=== PATIENT | female | born 1965 ===

== ENCOUNTER 2018-08-01 17:32 | Inpatient (IN) ==
[2018-08-01] MEDS ORDERED: Ondansetron 4 MG/2 ML VIAL IVP PRN (20:17)
[2018-08-01] MEDS ORDERED: Ondansetron 4 MG/2 ML VIAL ONE (20:20)
[2018-08-01] MEDS ORDERED: Ringers Solution, Lactated 1,000 ML IVC SCH (21:00)
[2018-08-01] MEDS ORDERED: *HR* Dextrose 50 % in Water (Syg) 50 ML SYRINGE IVP PRN (21:24)
[2018-08-01] MEDS ORDERED: Dextrose Gel 15 GM/37.5 ML TUBE PO PRN ×2 (21:24)
[2018-08-01 21:28] LABS: Prothrombin Time 11.7 Seconds (9.4-12.1)
[2018-08-01 21:31] LABS: Activated Partial Thrombo Time 22.6 Seconds (26.0-36.0)
--- NOTE | 2018-08-01 21:40 | Internal Med History&Physical ---
Date of Encounter: 08/01/18 Time of Encounter: 21:39 Internal Medicine - H&P: HPI Chief complaint: fatigue Admitted From: Home Plans for Post Hospital Care: Home History of present illness: June Sol is a 53-year-old obese woman former smoker with hypertension, diabetes, coronary artery disease status post 2 stents on dual antiplatelet therapy, cerebrovascular disease, anxiety disorder and depression. She underwent laparoscopic cholecystectomy for cholelithiasis and chronic cholecystitis on 07/16/18. On 07/26/18 she says she started developing dark stool with every bowel deposition. This has occurred daily since then and witnessed by family members. She says she went for follow-up visit in the surgery clinic where she expressed her concern to the nurse practitioner was offered no further evaluation. She has progressively become more weak, asthenic and fatigued with minimal exertion and today the role of numbness in her lower extremities which give her concern that she may be having another stroke. She went to [facility] where she was found to have a hemoglobin of 4.8 and positive stool for occult blood. On review of old records, it is noted that her hemoglobin on 07/17/18 was 10.8. She was given 2 units of blood transfusion and is transferred here for further care. At the time of my assessment she complains of diffuse abdominal pain that has been present since the dark stool developed. Vitals: Reviewed General: Well-developed white woman lying with notable anxiety. Skin: Warm, pale and dry. HEENT: Dry mucous membranes. + conjunctivae pallor. Neck: No lymphadenopathy. No JVD. No carotid bruits. No palpable thyroid. Chest: Normal thoracic expansion. Normal breath sounds. Clear to auscultation. Heart: Normal S1 & S2; rhythmic. No rubs or murmurs. Abdomen: Non-distended, soft and mildly tender to palpation in the periumbilical region. No peritoneal reaction. Extremities: No clubbing, cyanosis or edema. No calf tenderness. Normal distal pulses. Neurological: Awake, alert and oriented to person, place and time. No focal deficits. Psych: Affect appropriate. Assessment/Plan 1. Symptomatic acute blood loss anemia: Secondary to GI bleed. Will repeat H/H here with a goal Hgb of 8.0 given her history of CAD. 2. GI bleed: Seemingly upper in etiology. Concern for hemorrhagic gastritis or ulcer in the setting of dual antiplatelet therapy. GI has been consulted for endoscopic evaluation. Will keep NPO for now and start pantoprazole drip overnight. Analgesics as needed. 3. Anxiety disorder: Will administer diphenhydramine or lorazepam parenterally as needed. 4. CAD: DAPT will be on hold for now given bleeding status. 5. CVA: As above. 6. Diabetes: Will place on insulin sliding scale with glucose checks. 7. HTN: BP currently within normal limits. Past Med Surg Social Fam HX - Past Medical History Medical history: CVA, diabetes, myocardial infarction Additional medical history: 50% blind, neuropathy Psychiatric history: anxiety, depression, PTSD - Past Surgical History Surgical History: , cholecystectomy Additional surgical history: 2 stents - Social History Smoking Status: Former smoker Smokeless Tobacco Status: No Alcohol use: none Drug use: none Internal Medicine - H&P: Meds Amlodipine Besylate 10 mg PO DAILY 07/15/18 [History] Aspirin [Lo-Dose Aspirin EC] 81 mg PO DAILY 07/15/18 [History] Atorvastatin [Lipitor] 40 mg PO DAILY 07/15/18 [History] Calcitriol [Rocaltrol] 0.25 mg PO DAILY 07/15/18 [History] Calcium Carbonate/Vitamin D3 [Calcium 600-Vit D3 200 Tablet] 1 each PO BID 07/15/18 [History] Clopidogrel [Plavix] 75 mg PO DAILY 07/15/18 [History] Lisinopril [Zestril] 5 mg PO DAILY 07/15/18 [History] Loratadine [Allergy Relief] 10 mg PO DAILY 07/15/18 [History] Metoprolol Succinate [Toprol Xl] 50 mg PO DAILY 07/15/18 [History] Ondansetron HCl [Zofran] 4 mg PO Q8H PRN 07/15/18 [History] Potassium Chloride [Klor-Con 10] 10 meq PO DAILY 07/15/18 [History] metFORMIN [Glucophage] 500 mg PO DAILY 07/15/18 [History] Docusate Sodium [Colace] 100 mg PO BID PRN #30 capsule 07/16/18 [Rx] Ondansetron ODT [Zofran ODT] 4 mg SL Q4HR PRN #15 tab.rapdis 07/16/18 [Rx] Atorvastatin [Lipitor] 40 mg PO HS tablet 07/17/18 [Rx] Allergy/AdvReac Type Severity Reaction Status Date / Time acetaminophen [From Percocet] AdvReac Itching Verified 08/01/18 20:33 oxycodone [From Percocet] AdvReac Itching Verified 08/01/18 20:33 All Systems PM: A 10-system review of systems was performed and is negative for pertinent findings except as documented above in the HPI. Family history reviewed and found non-contributory. - Constitutional Vitals: Temp Pulse Resp BP Pulse Ox 98.3 F 67 18 133/81 100 08/01/18 19:50 08/01/18 19:50 08/01/18 19:50 08/01/18 19:50 08/01/18 19:50 Exam: . - Time Spent With Patient Total time spent is greater than 50% in coordination of care (as documented) at patient's floor/unit and/or counseling patient: Greater than 35 minutes
[2018-08-01 21:41] LABS: Albumin 3.2 g/dL (3.5-5.7); Albumin/Globulin Ratio 1.2 (1.1-2.2); Bilirubin,Direct 0.1 mg/dL (0.0-0.2); Bilirubin,Indirect 0.5 mg/dL (0.0-1.2); Bilirubin,Total 0.6 mg/dL (0.3-1.0); Calcium 8.5 mg/dL (8.6-10.3); Globulin 2.6 g/dL (2.4-3.5); Potassium 4.2 mEq/L (3.5-5.1); Total Protein 5.8 g/dL (6.4-8.9)
[2018-08-01] MEDS: Pantoprazole 40 MG in 0.9 % Sodium Chloride Mini Bag 100 ML IVC SCH (21:59)
[2018-08-01 22:03] LABS: Basophils # 0.1 K/mcL (0.0-0.2); Basophils % 0.5 %; Eosinophils # 0.4 K/mcL (0.0-0.6); Eosinophils % 4.1 %; Hematocrit 22.7 % (35.3-44.9); Hemoglobin 7.3 g/dL (11.5-15.4); Immature Granulocytes % 1.4 % (0-4); Lymphocytes # 4.3 K/mcL (0.6-4.6); Lymphocytes % 42.2 %; Mean Corpuscular HGB Conc 32.2 g/dL (31.6-35.5); Mean Corpuscular Hemoglobin 30.3 pg (28.0-33.3); Mean Corpuscular Volume 94.2 fL (83.0-100.0); Mean Platelet Volume 9.5 fL (9.4-12.4); Monocytes # 0.7 K/mcL (0.0-1.3); Monocytes % 6.7 %; Neutrophils # 4.5 K/mcL (1.6-8.9); Nucleated Red Blood Cells 0.9 /100 WBC (0); Platelet Count 329 K/mcL (140-400); Red Blood Count 2.41 M/mcL (3.82-4.97); Red Cell Distribution Width 16.6 % (11.5-14.5); Segmented Neutrophils % 45.1 %
[2018-08-01] MEDS ORDERED: 0.9 % Sodium Chloride 500 ML ONE (23:09)
[2018-08-02] MEDS: Insulin LISPRO 300 UNITS/3 ML VIAL SQ SCH ×4 (00:35→17:14)
[2018-08-02] MEDS ORDERED: OXYCODONE Oral CONC 10 MG/0.5 ML ORAL.SYG SL ONE (02:11)
[2018-08-02] MEDS: Pantoprazole 40 MG in 0.9 % Sodium Chloride Mini Bag 100 ML IVC SCH ×3 (02:32→12:55)
[2018-08-02 07:45] LABS: Basophils # 0.1 K/mcL (0.0-0.2); Basophils % 0.6 %; Eosinophils # 0.6 K/mcL (0.0-0.6); Eosinophils % 7.3 %; Hematocrit 23.8 % (35.3-44.9); Hemoglobin 7.7 g/dL (11.5-15.4); Immature Granulocytes % 1.4 % (0-4); Lymphocytes # 3.3 K/mcL (0.6-4.6); Lymphocytes % 38.4 %; Mean Corpuscular HGB Conc 32.4 g/dL (31.6-35.5); Mean Corpuscular Hemoglobin 29.5 pg (28.0-33.3); Mean Corpuscular Volume 91.2 fL (83.0-100.0); Mean Platelet Volume 9.4 fL (9.4-12.4); Monocytes # 0.6 K/mcL (0.0-1.3); Monocytes % 6.6 %; Nucleated Red Blood Cells 0.5 /100 WBC (0); Platelet Count 288 K/mcL (140-400); Red Blood Count 2.61 M/mcL (3.82-4.97); Red Cell Distribution Width 17.4 % (11.5-14.5); Segmented Neutrophils % 45.7 %
--- NOTE | 2018-08-02 08:45 | Internal Medicine Consult Note ---
Date of Encounter: 08/02/18 Time of Encounter: 08:42 - Assessment and Plan (1) Anemia Current Visit: Yes Status: Acute Assessment and plan: Given the darkness of her bowel movements, abdominal pain, will set up for upper endoscopy this morning. Risks and benefits have been discussed. Differential to include esophagitis, ulceration, even gastritis with bleeding. If this is negative, she will need bowel prep and colonoscopy. Supporting hemoglobin needed, we will continue PPI therapy. She was slightly anemic even before her gallbladder surgery, is quite possible she had trouble at that time. Certainly compounded by dual antiplatelet therapy. Qualifiers: Anemia type: unspecified type Qualified Code(s): D64.9 - Anemia, unspecified (2) CAD (coronary artery disease) Current Visit: No Status: Chronic Assessment and plan: This appears stable, upon discharge, we will certainly hold one of these medications if not both, specifically the aspirin and Plavix. Qualifiers: Qualified Code(s): I25.10 - Atherosclerotic heart disease of [place] coronary artery without angina pectoris (3) HTN (hypertension), benign Current Visit: No Status: Chronic (4) History of CVA (cerebrovascular accident) Current Visit: Yes Status: Chronic (5) Mood disorder Current Visit: No Status: Chronic Internal Medicine - CN: HPI - Data of Consult Patient: new to practice Requesting Physician: Elizabeth Ascencio - Consult Narrative Reason for consult: Melena, drop in HGB History of present illness: Ms. Sol is a 53 year old female seen at the request of the hospitalist service. She presented to [facility] with at least 5-7 days of intermittent dark stool, yesterday developed more subacute onset of just leg weakness and feeling poorly. Upon presentation to [facility], she was found to have a hemoglobin of 4.7. She was actually transferred here after receiving 2 units of blood at that facility. She now is awake and alert and feeling a good deal better. She is roughly 2 weeks out of having a cystectomy here at [facility]. And even before that time was losing moderate amount of weight and had some dyspeptic complaints with nausea intermittent reflux. She admits since surgery, she is had upper abdominal vague discomfort with episodes of nausea and emesis. She has seen no blood or coffee-ground material. She has had no prior upper or lower endoscopy, and was not told she was anemic in the past. Has not been taking any anti-inflammatories, does take dual antiplatelet therapy for heart disease Past Med Surg Social Fam HX - Past Medical History Medical history: CVA, diabetes, hypertension, myocardial infarction Additional medical history: 50% blind, neuropathy Psychiatric history: anxiety, depression, PTSD - Past Surgical History Surgical History: , cholecystectomy Additional surgical history: 2 stents - Social History Smoking Status: Former smoker Smokeless Tobacco Status: No Alcohol use: none Drug use: none - Constitutional Constitutional: anorexia, fatigue, lethargy, malaise, weakness, weight loss, no fever(s), no falls - EENT Eyes: no blurry vision, no diplopia - Cardiovascular Cardiovascular ROS IM: no chest pain, no diaphoresis, no dyspnea, no edema, no lightheadedness, no palpitations, no syncope - Respiratory Respiratory: no cough, no dyspnea, no wheezing, no chest congestion - Gastrointestinal Gastrointestinal: abdominal pain, change in bowel habits, change in stool character, dyspepsia, heartburn, melena, nausea, vomiting, no dysphagia - Genitourinary Genitourinary: no hematuria, no menorrhagia, no pelvic pain - Musculoskeletal Musculoskeletal ROS IM: no joint swelling, no neck pain - Neurological Neurological ROS: loss of vision, no confusion, no convulsions, no memory loss - Psychiatric Psychiatric: depression - Hematologic/Lymphatic Hematologic/Lymphatic: no easy bleeding, no easy bruising Internal Medicine - CN: Meds Amlodipine Besylate 10 mg PO DAILY 07/15/18 [History] Aspirin [Lo-Dose Aspirin EC] 81 mg PO DAILY 07/15/18 [History] Calcitriol [Rocaltrol] 0.25 mg PO DAILY 07/15/18 [History] Calcium Carbonate/Vitamin D3 [Calcium 600-Vit D3 200 Tablet] 1 each PO BID 07/15/18 [History] Clopidogrel [Plavix] 75 mg PO DAILY 07/15/18 [History] Lisinopril [Zestril] 5 mg PO DAILY 07/15/18 [History] Loratadine [Allergy Relief] 10 mg PO DAILY 07/15/18 [History] Metoprolol Succinate [Toprol Xl] 50 mg PO DAILY 07/15/18 [History] Ondansetron HCl [Zofran] 4 mg PO Q8H PRN 07/15/18 [History] Potassium Chloride [Klor-Con 10] 10 meq PO DAILY 07/15/18 [History] metFORMIN [Glucophage] 500 mg PO DAILY 07/15/18 [History] Docusate Sodium [Colace] 100 mg PO BID PRN #30 capsule 07/16/18 [Rx] Atorvastatin [Lipitor] 40 mg PO HS tablet 07/17/18 [Rx] Allergy/AdvReac Type Severity Reaction Status Date / Time acetaminophen [From Percocet] AdvReac Itching Verified 08/01/18 20:33 oxycodone [From Percocet] AdvReac Itching Verified 08/01/18 20:33 Internal Med - CN: Exam - Constitutional Vitals: Temp Pulse Resp BP Pulse Ox 98.1 F 65 18 122/63 98 08/02/18 07:35 08/02/18 07:35 08/02/18 07:35 08/02/18 07:35 08/02/18 07:35 General appearance IM: Present: A&O X 3, pleasant, no acute distress, answers questions appropriately Exam: Overall good historian, pleasant, maybe a bit anxious. But seems comfortable in bed. - Head Head exam: Present: atraumatic, normocephalic - Eye Eye exam: Present: conjuntiva pink, sclera anicteric - Neck Neck exam general surgery: Present: full ROM, supple, trachea midline - Respiratory Respiratory exam: Present: CTAB. Absent: respiratory distress, rhonchi, wheezes, tachypnea - Cardiovascular Cardiovascular exam IM: Present: irregular rhythm, RRR, +S1, +S2. Absent: JVD, systolic murmur, tachycardia - GI/Abdominal GI/Abdominal exam IM: Present: firm, normal bowel sounds, tenderness. Absent: guarding, rebound, rigid Additional comments: Abdomen is somewhat protuberant, appropriate bowel sounds, mildly tender in all quadrants. She admits her abdomen is always been somewhat touchy to palpation. Laparoscopic incisions healing nicely. - Rectal Rectal exam: Present: deferred Internal Medicine - CN: Reslt - Labs CBC & Chem 7: 08/02/18 07:29 08/01/18 21:06 Labs: Short CBC 08/01/18 08/02/18 Range/Units 21:35 07:29 WBC 10.1 8.6 (4.3-11.1) K/mcL Hgb 7.3 L 7.7 L (11.5-15.4) g/dL Hct 22.7 L 23.8 L (35.3-44.9) % Plt Count 329 288 (140-400) K/mcL Neutrophils # 4.5 4.0 (1.6-8.9) K/mcL BMP 08/01/18 21:06 Sodium 137 Potassium 4.2 Chloride 109 H Carbon Dioxide 20 L BUN 29 H Creatinine 1.34 H Glucose 101 Calcium 8.5 L Liver Function 08/01/18 Range/Units 21:06 Total Bilirubin 0.6 (0.3-1.0) mg/dL Direct Bilirubin 0.1 (0.0-0.2) mg/dL AST 15 (13-39) Units/L ALT 15 (7-52) Units/L Alkaline Phosphatase 78 (34-104) Units/L Albumin 3.2 L (3.5-5.7) g/dL - ABG Interpretation ABG results: PT/INR, D-dimer PT 11.7 Seconds (9.4-12.1) 08/01/18 21:06 Consult Discharge Plan - Plan Referrals: Pop Joseph DO [Primary Care Provider] -
[2018-08-02] MEDS ORDERED: Simethicone 40 MG/0.6 ML MLS IR ONE (08:54)
[2018-08-02] MEDS ORDERED: *HR* FentaNYL (PF) 100 MCG/2 ML VIAL IVP ONE (08:54)
[2018-08-02] MEDS ORDERED: *HR* Midazolam HCl 5 MG/5 ML VIAL IVP ONE ×2 (08:54→09:14)
[2018-08-02] MEDS ORDERED: Tetracaine/Benzocaine/Butamben 1 SPRAY AEROSOL MM ONE (08:54)
--- NOTE | 2018-08-02 08:55 | Pre-Sedation Evaluation ---
Pre-sedation evaluation - Pre-sedation checklist Date of procedure: 08/02/18 Procedure: EGD Recent Vitals: Last Vital Signs Temp 98.1 F 08/02/18 07:35 Pulse 65 08/02/18 07:35 Resp 18 08/02/18 07:35 BP 122/63 08/02/18 07:35 Pulse Ox 98 08/02/18 07:35 H&P (including ROS) documented in medical record: Yes Previous reaction to sedatives/anesthetics: No Dietary Status: NPO after Midnight Airway Assessment: Patient can open mouth completely, TMJ function normal Dentition: No loose teeth or bridges Possible difficult airway: No ASA Classification *see protocol: CLASS III-Severe systemic disease Plan of Care: Pt appropriate candidate for procedure/moderate/conscious sedation
[2018-08-02] MEDS ORDERED: *HR* FentaNYL (PF) 100 MCG/2 ML VIAL ONE (09:13)
--- NOTE | 2018-08-02 09:51 | Event Note ---
Date of Encounter: 08/02/18 Time of Encounter: 09:49 EGD findings: 1. Esophagus, Z line okay at 40 cm, small nodule noted, biopsy, most likely not significant. 2 Stomach, Normal 3. Duodenum, distal bulb ulceration no clot, active bleeding. CLOtest obtained, suspicious for H. pylori Recommendations We will check on H. pylori testing in the morning, continue PPI therapy, I will start iron. Hopefully if she stays stable, and 24-48 hours she may safely discharged.
--- NOTE | 2018-08-02 09:53 | Internal Med Progress Note ---
Date of Encounter: 08/02/18 Time of Encounter: 09:51 - Assessment and plan (1) Duodenal ulcer Current Visit: Yes Status: Acute Assessment and plan: Suspicious for H. pylori. We will continue PPI therapy, I have added Carafate. With GI bleeding and blood loss anemia. (2) CAD (coronary artery disease) Current Visit: No Status: Chronic Qualifiers: Qualified Code(s): I25.10 - Atherosclerotic heart disease of [place] coronary artery without angina pectoris (3) HTN (hypertension), benign Current Visit: No Status: Chronic (4) History of CVA (cerebrovascular accident) Current Visit: Yes Status: Chronic (5) Mood disorder Current Visit: No Status: Chronic - Constitutional Vitals: Temp Pulse Resp BP Pulse Ox 98.3 F 62 16 104/58 98 08/02/18 09:15 08/02/18 09:36 08/02/18 09:36 08/02/18 09:36 08/02/18 09:36 Internal Medicine: Result - Labs CBC & Chem 7: 08/02/18 07:29 08/01/18 21:06 Labs: Short CBC 08/01/18 08/02/18 Range/Units 21:35 07:29 WBC 10.1 8.6 (4.3-11.1) K/mcL Hgb 7.3 L 7.7 L (11.5-15.4) g/dL Hct 22.7 L 23.8 L (35.3-44.9) % Plt Count 329 288 (140-400) K/mcL Neutrophils # 4.5 4.0 (1.6-8.9) K/mcL BMP 08/01/18 21:06 Sodium 137 Potassium 4.2 Chloride 109 H Carbon Dioxide 20 L BUN 29 H Creatinine 1.34 H Glucose 101 Calcium 8.5 L Liver Function 08/01/18 Range/Units 21:06 Total Bilirubin 0.6 (0.3-1.0) mg/dL Direct Bilirubin 0.1 (0.0-0.2) mg/dL AST 15 (13-39) Units/L ALT 15 (7-52) Units/L Alkaline Phosphatase 78 (34-104) Units/L Albumin 3.2 L (3.5-5.7) g/dL - ABG Interpretation ABG results: PT/INR, D-dimer PT 11.7 Seconds (9.4-12.1) 08/01/18 21:06 Consult Discharge Plan - Plan Referrals: Pop Joseph DO [Primary Care Provider] -
[2018-08-02] MEDS: Sucralfate 1 GM TABLET PO SCH ×2 (10:08→15:45)
[2018-08-02] MEDS ORDERED: 0.9 % Sodium Chloride 250 ML ONE (11:14)
--- NOTE | 2018-08-02 11:52 | Internal Med Progress Note ---
Hospitalist Progress Note - Encounter Date of Encounter: 08/02/18 Time of Encounter: 11:30 - Subjective Interval History: Admitted for acute gi bleed. for endoscopy this am - Exam Vitals: Temp Pulse Resp BP Pulse Ox 98.0 F 68 16 108/67 98 08/02/18 11:23 08/02/18 11:23 08/02/18 11:23 08/02/18 11:23 08/02/18 11:23 Exam: General appearance: Present: A&O X 3, no acute distress Head exam: Present: normocephalic Respiratory exam: Present: CTAB. Absent: accessory muscle use, rales, rhonchi, wheezes Cardiovascular exam: Present: RRR, +S1, +S2. Absent: diastolic murmur, gallop, rubs, systolic murmur GI/Abdominal exam: Soft, NT, ND, +BS Extremities exam: Absent: pedal edema Neurological exam: Present: alert, oriented X3, no focal deficits. Absent: altered - Assessment and Plan (1) Acute upper GI bleed Current Visit: Yes Status: Acute Assessment and Plan: Pt came in with dark stools of about 4 days duration with hemoglobin of 4.8 She has been transfused a total of 3 units of PRBC. Hemoglobin is 7.7 She underwent endoscopy this am showing a bleeding duodenal ulcer Will continue PPI therapy. Switch to protonix 40mg IV BID. Follow up h. pylori testing. Transfuse to keep hgb above 8 due to CAD (2) Duodenal ulcer Current Visit: Yes Status: Acute Assessment and Plan: See #1. Hy pylori testing ordered Cotninue carafate and PPI (3) HTN (hypertension), benign Current Visit: No Status: Chronic Assessment and Plan: Stable. no indication for antihypertensives (4) Mood disorder Current Visit: Yes Status: Chronic Assessment and Plan: Resume home meds (5) CAD (coronary artery disease) Current Visit: No Status: Chronic Assessment and Plan: Hold aspirin and plavix (6) History of CVA (cerebrovascular accident) Current Visit: Yes Status: Chronic Assessment and Plan: Hold aspirin and plavix (7) DVT prophylaxis Current Visit: Yes Status: Acute Assessment and Plan: SCD - Time Spent with Patient Total time spent is greater than 50% in coordination of care (as documented) at patient's floor/unit and/or counseling patient: Internal Medicine: Result - Labs CBC & Chem 7: 08/02/18 07:29 08/01/18 21:06 Labs: Short CBC 08/01/18 08/02/18 Range/Units 21:35 07:29 WBC 10.1 8.6 (4.3-11.1) K/mcL Hgb 7.3 L 7.7 L (11.5-15.4) g/dL Hct 22.7 L 23.8 L (35.3-44.9) % Plt Count 329 288 (140-400) K/mcL Neutrophils # 4.5 4.0 (1.6-8.9) K/mcL BMP 08/01/18 21:06 Sodium 137 Potassium 4.2 Chloride 109 H Carbon Dioxide 20 L BUN 29 H Creatinine 1.34 H Glucose 101 Calcium 8.5 L Liver Function 08/01/18 Range/Units 21:06 Total Bilirubin 0.6 (0.3-1.0) mg/dL Direct Bilirubin 0.1 (0.0-0.2) mg/dL AST 15 (13-39) Units/L ALT 15 (7-52) Units/L Alkaline Phosphatase 78 (34-104) Units/L Albumin 3.2 L (3.5-5.7) g/dL - ABG Interpretation ABG results: PT/INR, D-dimer PT 11.7 Seconds (9.4-12.1) 08/01/18 21:06 Consult Discharge Plan - Plan Referrals: Pop Joseph DO [Primary Care Provider] - (5) CAD (coronary artery disease) Qualifiers: Qualified Code(s): I25.10 - Atherosclerotic heart disease of [place] coronary artery without angina pectoris
[2018-08-02] MEDS ORDERED: Nitroglycerin 0.4 MG TAB.SUBL SL PRN (16:03)
[2018-08-02] MEDS: Pantoprazole 40 MG VIAL IVP SCH (17:19)
[2018-08-02] MEDS ORDERED: GI Cocktail 40 ML EACH PO ONE (18:43)
[2018-08-03] MEDS: Sucralfate 1 GM TABLET PO SCH ×5 (01:07→21:35)
[2018-08-03] MEDS: Insulin LISPRO 300 UNITS/3 ML VIAL SQ SCH ×4 (01:08→17:01)
[2018-08-03] MEDS: Pantoprazole 40 MG VIAL IVP SCH (05:34)
[2018-08-03 08:17] LABS: Basophils # 0.1 K/mcL (0.0-0.2); Basophils % 0.7 %; Eosinophils # 0.8 K/mcL (0.0-0.6); Eosinophils % 10.1 %; Hematocrit 28.8 % (35.3-44.9); Hemoglobin 9.2 g/dL (11.5-15.4); Immature Granulocytes % 0.9 % (0-4); Lymphocytes % 40.1 %; Mean Corpuscular HGB Conc 31.9 g/dL (31.6-35.5); Mean Corpuscular Hemoglobin 29.5 pg (28.0-33.3); Mean Corpuscular Volume 92.3 fL (83.0-100.0); Mean Platelet Volume 9.5 fL (9.4-12.4); Monocytes # 0.5 K/mcL (0.0-1.3); Monocytes % 6.9 %; Neutrophils # 3.1 K/mcL (1.6-8.9); Nucleated Red Blood Cells 0.3 /100 WBC (0); Platelet Count 317 K/mcL (140-400); Red Blood Count 3.12 M/mcL (3.82-4.97); Red Cell Distribution Width 17.4 % (11.5-14.5); Segmented Neutrophils % 41.3 %
[2018-08-03 08:49] LABS: Calcium 8.5 mg/dL (8.6-10.3); Magnesium 1.9 mg/dL (1.6-2.6); Potassium 4.4 mEq/L (3.5-5.1)
--- NOTE | 2018-08-03 10:16 | Event Note ---
Date of Encounter: 08/03/18 Time of Encounter: 10:15 Her Lizabeth TEST is negative.. will need 8 weeks of PPI therapy, maybe 2 weeks of carafate. DC further Plavix and re-start ASA in 7 days
--- NOTE | 2018-08-03 12:53 | Internal Med Progress Note ---
Hospitalist Progress Note - Encounter Date of Encounter: 08/03/18 Time of Encounter: 12:00 - Subjective Interval History: s/p endoscopy in last 24hrs - Exam Vitals: Temp Pulse Resp BP Pulse Ox 97.7 F 65 18 148/79 99 08/03/18 11:45 08/03/18 11:45 08/03/18 11:45 08/03/18 11:45 08/03/18 11:45 Exam: General appearance: Present: A&O X 3, no acute distress Head exam: Present: normocephalic Respiratory exam: Present: CTAB. Absent: accessory muscle use, rales, rhonchi, wheezes Cardiovascular exam: Present: RRR, +S1, +S2. Absent: diastolic murmur, gallop, rubs, systolic murmur GI/Abdominal exam: Soft, NT, ND, +BS Extremities exam: Absent: pedal edema Neurological exam: Present: alert, oriented X3, no focal deficits. Absent: altered - Assessment and Plan (1) Acute upper GI bleed Current Visit: Yes Status: Acute Assessment and Plan: Pt came in with dark stools of about 4 days duration with hemoglobin of 4.8 She has been transfused a total of 3 units of PRBC. Hemoglobin is 7.7 She underwent endoscopy on 08/02 showing a duodenal ulcer Will continue PPI therapy.H. pylori testing negative Keep hemoglobin above 8. Will monitor and plan to d/c in am if hemoglobin is stable (2) Duodenal ulcer Current Visit: Yes Status: Acute Assessment and Plan: See #1. H.pylori testing negative Cotninue carafate and PPI (3) HTN (hypertension), benign Current Visit: Yes Status: Chronic Assessment and Plan: Stable. no indication for antihypertensives (4) Mood disorder Current Visit: Yes Status: Chronic Assessment and Plan: Resume home meds (5) CAD (coronary artery disease) Current Visit: Yes Status: Chronic Assessment and Plan: Hold aspirin and plavix (6) History of CVA (cerebrovascular accident) Current Visit: Yes Status: Chronic Assessment and Plan: Hold aspirin and plavix (7) DVT prophylaxis Current Visit: Yes Status: Acute Assessment and Plan: SCD - Time Spent with Patient Total time spent is greater than 50% in coordination of care (as documented) at patient's floor/unit and/or counseling patient: Internal Medicine: Result - Labs CBC & Chem 7: 08/03/18 07:07 08/03/18 07:07 Labs: Short CBC 08/03/18 Range/Units 07:07 WBC 7.5 (4.3-11.1) K/mcL Hgb 9.2 L D (11.5-15.4) g/dL Hct 28.8 L (35.3-44.9) % Plt Count 317 (140-400) K/mcL Neutrophils # 3.1 (1.6-8.9) K/mcL BMP 08/03/18 07:07 Sodium 136 Potassium 4.4 Chloride 107 Carbon Dioxide 21 L BUN 20 Creatinine 1.45 H Glucose 107 H Calcium 8.5 L Cardiac Enzymes 08/02/18 Range/Units 16:10 Troponin I < 0.03 (< 0.04) ng/mL - ABG Interpretation ABG results: PT/INR, D-dimer PT 11.7 Seconds (9.4-12.1) 08/01/18 21:06 Consult Discharge Plan - Plan Referrals: Pop Joseph DO [Primary Care Provider] - (5) CAD (coronary artery disease) Qualifiers: Qualified Code(s): I25.10 - Atherosclerotic heart disease of [place] coronary artery without angina pectoris
[2018-08-03 18:38] LABS: Hematocrit 32.4 % (35.3-44.9); Hemoglobin 10.6 g/dL (11.5-15.4)
[2018-08-03] MEDS: Loratadine 10 MG TABLET PO SCH (19:45)
[2018-08-03] MEDS ORDERED: Insulin LISPRO 300 UNITS/3 ML VIAL SQ SCH (21:00)
[2018-08-04] MEDS ORDERED: Acetaminophen 325 MG TABLET PO PRN (03:34)
[2018-08-04 04:30] LABS: Basophils % 0.4 %; Eosinophils # 0.8 K/mcL (0.0-0.6); Eosinophils % 11.1 %; Hematocrit 30.6 % (35.3-44.9); Hemoglobin 9.9 g/dL (11.5-15.4); Immature Granulocytes % 0.8 % (0-4); Lymphocytes # 3.2 K/mcL (0.6-4.6); Lymphocytes % 42.6 %; Mean Corpuscular HGB Conc 32.4 g/dL (31.6-35.5); Mean Corpuscular Hemoglobin 30.1 pg (28.0-33.3); Mean Platelet Volume 9.2 fL (9.4-12.4); Monocytes # 0.5 K/mcL (0.0-1.3); Monocytes % 6.7 %; Neutrophils # 2.9 K/mcL (1.6-8.9); Platelet Count 320 K/mcL (140-400); Red Blood Count 3.29 M/mcL (3.82-4.97); Red Cell Distribution Width 17.4 % (11.5-14.5); Segmented Neutrophils % 38.4 %
[2018-08-04 04:48] LABS: Calcium 8.8 mg/dL (8.6-10.3); Phosphorous 3.7 mg/dL (2.7-4.5); Potassium 4.1 mEq/L (3.5-5.1)
[2018-08-04] MEDS: Insulin LISPRO 300 UNITS/3 ML VIAL SQ SCH ×2 (07:25→11:52)
[2018-08-04] MEDS: Loratadine 10 MG TABLET PO SCH (07:37)
[2018-08-04] MEDS: Sucralfate 1 GM TABLET PO SCH ×3 (07:37→15:54)
[2018-08-04] MEDS ORDERED: 0.9 % Sodium Chloride 1,000 ML IVC SCH (08:15)
[2018-08-04] MEDS ORDERED: amLODIPine 5 MG TABLET PO SCH (09:00)
[2018-08-04] MEDS ORDERED: Metoprolol XL (24 HR) Succ 50 MG TAB.ER.24H PO SCH (09:00)
--- NOTE | 2018-08-04 09:25 | Discharge Summary ---
- NOTES TO OUTPATIENT PROVIDER Notes to Outpatient Provider: Stop taking plavix. Resume aspirin in 7 days. Take protonix BID for 8 weeks Date of Encounter: 08/04/18 Time of Encounter: 11:40 - Discharge Diagnosis (1) Acute upper GI bleed Priority: Primary Status: Acute Assessment and Plan: 53-year-old obese woman former smoker with hypertension, diabetes, coronary artery disease status post 2 stents on dual antiplatelet therapy, cerebrovascular disease, anxiety disorder and depression. She underwent laparoscopic cholecystectomy for cholelithiasis and chronic cholecystitis on 07/16/18. On 07/26/18 she says she started developing dark stool with every bowel deposition. This has occurred daily since then and witnessed by family members. She was assessed with symptomatic anemia with acute upper GI bleed. Pt came in with dark stools of about 4 days duration with hemoglobin of 4.8. She was started on a protonix drip and was transfused a total of 4 units of PRBC. Hemogl obin responded appropriately. She underwent endoscopy on 08/02 showing a non bleeding duodenal ulcer. She was tested for h. pylori which came back negative. Her plavix which she was on 5 years has been discontinued and she is to resume aspirin in 7 days. Hemoglobin is stable. she is being discharged on BID protonix. She had an ZAIN likely secondary to hypovolemia for which she was hydrated prior to discharge. 35 minutes was spent discharging this patient (2) Duodenal ulcer Priority: Primary Status: Acute (3) HTN (hypertension), benign Priority: Primary Status: Chronic (4) Mood disorder Priority: Primary Status: Chronic (5) CAD (coronary artery disease) Priority: Primary Status: Chronic Qualifiers: Qualified Code(s): I25.10 - Atherosclerotic heart disease of [place] coronary artery without angina pectoris (6) History of CVA (cerebrovascular accident) Priority: Primary Status: Chronic (7) DVT prophylaxis Priority: Primary Status: Acute Hospital course: Ms. Sol is a 53 year old female - Time Spent with Patient Total time spent providing and/or coordinating discharge services: - Discharge Medications Prescriptions: New Ferrous Sulfate 325 mg PO BIDWM #60 tablet Omeprazole [PriLOSEC] 40 mg PO BIDAC #60 capsule. Docusate [Colace] 100 mg PO BID #60 capsule Sucralfate [Carafate] 1 gm PO QIDAC #120 tablet Continued Amlodipine Besylate 10 mg PO DAILY Calcitriol [Rocaltrol] 0.25 mcg PO DAILY Lisinopril [Zestril] 5 mg PO DAILY Loratadine [Allergy Relief] 10 mg PO DAILY Metoprolol Succinate [Toprol Xl] 50 mg PO DAILY Potassium Chloride [Klor-Con 10] 10 meq PO DAILY Aspirin [Lo-Dose Aspirin EC] 81 mg PO DAILY metFORMIN [Glucophage] 500 mg PO DAILY Atorvastatin [Lipitor] 40 mg PO HS tablet DULoxetine [Cymbalta] 30 mg PO DAILY Discontinued Clopidogrel [Plavix] 75 mg PO DAILY Home Medications: Amlodipine Besylate 10 mg PO DAILY 07/15/18 [History] Aspirin [Lo-Dose Aspirin EC] 81 mg PO DAILY 07/15/18 [History] Calcitriol [Rocaltrol] 0.25 mcg PO DAILY 07/15/18 [History] Lisinopril [Zestril] 5 mg PO DAILY 07/15/18 [History] Loratadine [Allergy Relief] 10 mg PO DAILY 07/15/18 [History] Metoprolol Succinate [Toprol Xl] 50 mg PO DAILY 07/15/18 [History] Potassium Chloride [Klor-Con 10] 10 meq PO DAILY 07/15/18 [History] metFORMIN [Glucophage] 500 mg PO DAILY 07/15/18 [History] Atorvastatin [Lipitor] 40 mg PO HS tablet 07/17/18 [Rx] DULoxetine [Cymbalta] 30 mg PO DAILY 08/03/18 [History] Docusate [Colace] 100 mg PO BID #60 capsule 08/04/18 [Rx] Ferrous Sulfate 325 mg PO BIDWM #60 tablet 08/04/18 [Rx] Omeprazole [PriLOSEC] 40 mg PO BIDAC #60 capsule. 08/04/18 [Rx] Sucralfate [Carafate] 1 gm PO QIDAC #120 tablet 08/04/18 [Rx] Allergies/Adverse Reactions: Allergy/AdvReac Type Severity Reaction Status Date / Time acetaminophen [From Percocet] AdvReac Itching Verified 08/01/18 20:33 Doxepin AdvReac Nightmare Verified 08/03/18 15:00 oxycodone [From Percocet] AdvReac Itching Verified 08/01/18 20:33 Date of admission: 08/01/18 21:34 Primary care physician: Pop Joseph DO Consults: 08/01/18 20:52 Consult to Gastroenterology [CONS] Routine Consulting Provider: Gastroenterology Karen Reason for Consult: GI bleed Call Completed: Yes - Constitutional Vitals: Temp Pulse Resp BP Pulse Ox 98.3 F 63 17 101/61 96 08/04/18 07:08 08/04/18 07:08 08/04/18 07:08 08/04/18 07:08 08/04/18 07:08 General appearance: Present: A&O X 3, pleasant, no acute distress, answers questions appropriately Exam: General appearance: Present: A&O X 3, no acute distress Head exam: Present: normocephalic Respiratory exam: Present: CTAB. Absent: accessory muscle use, rales, rhonchi, wheezes Cardiovascular exam: Present: RRR, +S1, +S2. Absent: diastolic murmur, gallop, rubs, systolic murmur GI/Abdominal exam: Soft, NT, ND, +BS Extremities exam: Absent: pedal edema Neurological exam: Present: alert, oriented X3, no focal deficits. Absent: altered - Patient Status Disposition: Home, Self-Care Condition: Good - Discharge Instructions Follow Up With: Pop Joseph DO [Primary Care Provider] - 08/07/18 1:30 pm
[2018-08-04 11:32] VITALS: BP 127/81
--- NOTE | 2018-08-04 22:50 | Electrocardiograph Report ---
[place] [id number] Test Date: 2018-08-02 Pat Name: June Sol Department: 110 Room: 3A13 Gender: F [employer] Tender: Keke : 1965 Requested By: Shanelle Clarke Order Number: [id number] Reading MD: Elma Alvarez Measurements Intervals [place] Rate: 55 P: 39 NC: 99 QRS: 18 QRSD: 86 T: 11 QT: 438 QTc: 426 Interpretive Statements SINUS BRADYCARDIA WITH SHORT NC INTERVAL Electronically Signed On 08-04-2018 22:48:54 EDT by Elma Alvarez
== END 2018-08-04 16:07 | disposition home or self-care (01) | DRG 241 ==
LOC: 2NNU → PREINTOOBSV 18:36 → 3ANU 08-03 19:28
PROVIDERS: ADMIT Internal Medicine Nephrology; ATTEND Internal Medicine Nephrology
PROC: ENDOEBX (2018-08-02 09:30)